=== PATIENT | male | born 1975 | race Caucasian/White ===

== ENCOUNTER 2018-12-16 07:48 | Day surgery (SDC) | payer OTHER ==
[~2018-12-16] VITALS: Ht 172.7 cm; Wt 66.0 kg
[2018-12-16] MEDS ORDERED: ACETAMINOPHEN 500 MG TABLET PO ONE (08:00)
[2018-12-16] MEDS ORDERED: OxyconTIN ER 20 MG TAB.ER PO ONE (08:00)
[2018-12-16] MEDS ORDERED: GABAPENTIN 300 MG CAPSULE PO ONE (08:00)
[2018-12-16] MEDS ORDERED: LACTATED RINGERS 1,000 ML IV SCH (08:25)
[2018-12-16 08:26] VITALS: BP 138/90
[2018-12-16] MEDS ORDERED: PLEASE ENTER ALLERGIES MC SCH (08:30)
[2018-12-16] MEDS ORDERED: PLEASE ENTER HEIGHT AND WEIGHT MC SCH (08:30)
[2018-12-16] MEDS ORDERED: AMOX1TAB64 PO (08:36)
[2018-12-16] MEDS ORDERED: SULF1TAB24 PO (08:36)
[2018-12-16] MEDS ORDERED: LIDOCAINE 1%, 20ML ONE (09:15)
[2018-12-16] MEDS ORDERED: BUPIVACAINE/PF 0.5% ONE (09:15)
[2018-12-16] MEDS ORDERED: LIDOCAINE 2%, 6 ML JEL.PF.APP MM ONE (09:27)
[2018-12-16] MEDS ORDERED: FENTANYL PF 100 MCG/2ML ONE (09:36)
[2018-12-16] MEDS ORDERED: MIDAZOLAM 1 MG/ML, 2ML ONE (09:36)
[2018-12-16] MEDS ORDERED: PROPOFOL 10 MG/ML, 50ML ONE (09:55)
[2018-12-16] MEDS ORDERED: PROPOFOL 10 MG/ML, 20ML ONE (09:55)
[2018-12-16] MEDS ORDERED: KETOROLAC 30 MG/1 ML ONE (09:55)
[2018-12-16] MEDS ORDERED: ONDANSETRON 2MG/ML, 2ML ONE (09:55)
[2018-12-16] MEDS ORDERED: DEXAMETHASONE 4 MG/ML, 5ML ONE (09:55)
[2018-12-16] MEDS ORDERED: DIAZEPAM 5 MG/ML, 2ML IVPush PRN (10:00)
[2018-12-16] MEDS ORDERED: CEFTRIAXONE PMX 2GM/50ML 50 ML IVPB ONE (10:00)
[2018-12-16] MEDS ORDERED: SCOPOLAMINE PATCH, 1.5MG PATCH.TD72 TD PRN (10:00)
[2018-12-16] MEDS ORDERED: DAPTOMYCIN 500 MG in SODIUM CHLORIDE 0.9% 100 ML IV ONE (10:00)
[2018-12-16] MEDS ORDERED: MIDAZOLAM 1 MG/ML, 2ML IV PRN (10:00)
[2018-12-16] MEDS ORDERED: hydrALAzine 20 MG/ML, 1ML IV PRN (10:00)
[2018-12-16] MEDS ORDERED: ONDANSETRON 2MG/ML, 2ML IV PRN (10:00)
[2018-12-16] MEDS ORDERED: OXYcodone 5 MG/5 ML ORAL.SOL UDC PO PRN (10:00)
[2018-12-16] MEDS ORDERED: FENTANYL PF 100 MCG/2ML IV PRN (10:00)
[2018-12-16] MEDS ORDERED: ALBUTEROL/IPRATROPIUM 2.5MG/0.5MG, 3 ML NPPB PRN (10:00)
[2018-12-16] MEDS ORDERED: MEPERIDINE/PF 25MG/0.5ML IVPush PRN (10:00)
[2018-12-16] MEDS ORDERED: PROMETHAZINE 25 MG/ML, 1ML IV PRN (10:00)
[2018-12-16] MEDS ORDERED: HYDROmorphone 2 MG/ML, 1ML IVPush PRN (10:00)
[2018-12-16] MEDS ORDERED: TOBRAMYCIN SULFATE 1.2 GM IMP ONE (10:06)
[2018-12-16 10:07] LABS: HCT (SEDRATE) 38.7 % (39.2-51.8)
[2018-12-16] MEDS ORDERED: VANCOMYCIN 1,000 MG ONE (10:07)
[2018-12-16 10:08] LABS: MEAN CORPUSCULAR HEMOGLOBIN 30.2 pg (27.5-34.5); MEAN CORPUSCULAR HGB CONC 33.8 g/dL (33.2-36.2); MEAN CORPUSCULAR VOLUME 89.1 fL (81-97); MEAN PLATELET VOLUME 7.4 fL (7.4-10.4); PLATELET COUNT 314 x10^3/uL (130-400); RED BLOOD COUNT 4.35 x10^6/uL (4.38-5.82); RED CELL DISTRIBUTION WIDTH 12.4 % (9.4-14.8)
[2018-12-16 10:16] LABS: ALANINE AMINOTRANSFERASE 23 U/L (12-78); ALBUMIN 3.5 g/dL (3.4-5.0); ANION GAP 8 mmol/L (5-15); CALCIUM 9.2 mg/dL (8.5-10.1); CHLORIDE 104 mmol/L (98-107); CREATININE 1.05 mg/dL (0.7-1.3)
[2018-12-16 10:22] LABS: ALKALINE PHOSPHATASE 79 U/L (45-117); BILIRUBIN,TOTAL 0.5 mg/dL (0.2-1.0); CREATINE KINASE, TOTAL 61 U/L (39-308); TOTAL PROTEIN 7.7 g/dL (6.4-8.2)
[2018-12-16 10:38] LABS: BASOPHILS # (AUTO) 0.02 x10^3/uL (0-0.1); BASOPHILS % (AUTO) 0 % (0-1); EOSINOPHILS # (AUTO) 0.05 x10^3/uL (0-0.4); EOSINOPHILS % (AUTO) 0 % (1-7); LYMPHOCYTES # (AUTO) 1.13 x10^3/uL (1-3.4); LYMPHOCYTES % (AUTO) 6 % (22-44); MD SCAN; MONOCYTES # (AUTO) 2.36 x10^3/uL (0.2-0.8); MONOCYTES % (AUTO) 13 % (2-9); NEUTROPHILS # (AUTO) 14.85 x10^3/uL (1.8-6.8); NEUTROPHILS % (AUTO) 81 % (42-75)
== END 2018-12-16 12:40 | disposition home or self-care (01) ==
LOC: OUT 07:48
PROVIDERS: ATTEND Orthopaedic Surgery
DX: L02.415 Cutaneous abscess of right lower limb (principal); M00.861 Arthritis due to other bacteria, right knee; L03.115 Cellulitis of right lower limb; J45.909 Unspecified asthma, uncomplicated; Z98.890 Other specified postprocedural states
CPT/HCPCS: 27310; 36415; 36573; 80053; 82550; 85025; 85651; 86140; 87070; 87075; 87077; 87147; 87176; 87186; 87205; 89051; C1751; J0696; J0878; J1100; J1885; J2250; J2405; J2704; J3010; J3260; J3370; J7120

== ENCOUNTER 2019-03-09 05:38 | Day surgery (SDC) | payer OTHER ==
[~2019-03-09] VITALS: Ht 172.7 cm; Wt 65.3 kg
[~2019-03-09 05:38] MED LIST: AMOX1TAB64 PO; SULF1TAB24 PO
[2019-03-09 06:16] VITALS: BP 140/91
[2019-03-09] MEDS ORDERED: LACTATED RINGERS 1,000 ML IV SCH (06:38)
[2019-03-09] MEDS ORDERED: FENTANYL PF 250 MCG/5ML ONE (06:47)
[2019-03-09] MEDS ORDERED: MIDAZOLAM 1 MG/ML, 2ML ONE (06:47)
[2019-03-09] MEDS ORDERED: PROPOFOL 50 ML ONE (06:47)
[2019-03-09] MEDS ORDERED: LIDOCAINE-MPF 2% ,5ML ONE (06:49)
[2019-03-09] MEDS ORDERED: ACETAMINOPHEN 500 MG TABLET PO ONE (07:00)
[2019-03-09] MEDS ORDERED: ONDANSETRON 2MG/ML, 2ML ONE (07:00)
[2019-03-09] MEDS ORDERED: DIAZEPAM 5 MG TABLET PO ONE (07:00)
[2019-03-09] MEDS ORDERED: OxyconTIN ER 20 MG TAB.ER PO ONE (07:00)
[2019-03-09] MEDS ORDERED: CEFAZOLIN 1,000 MG ONE (07:00)
[2019-03-09] MEDS ORDERED: DEXAMETHASONE 4 MG/ML, 1ML ONE (07:00)
[2019-03-09] MEDS ORDERED: GABAPENTIN 300 MG CAPSULE PO ONE (07:00)
[2019-03-09] MEDS ORDERED: ONDANSETRON 2MG/ML, 2ML IV PRN (08:00)
[2019-03-09] MEDS ORDERED: PROMETHAZINE 25 MG/ML, 1ML IV PRN (08:00)
[2019-03-09] MEDS ORDERED: MIDAZOLAM 1 MG/ML, 2ML IV PRN (08:00)
[2019-03-09] MEDS ORDERED: FENTANYL PF 100 MCG/2ML IV PRN (08:00)
[2019-03-09] MEDS ORDERED: METOPROLOL 1 MG/ML, 5ML IV PRN (08:00)
[2019-03-09] MEDS ORDERED: SCOPOLAMINE PATCH, 1.5MG PATCH.TD72 TD PRN (08:00)
[2019-03-09] MEDS ORDERED: ALBUTEROL/IPRATROPIUM 2.5MG/0.5MG, 3 ML NPPB PRN (08:00)
[2019-03-09] MEDS ORDERED: OXYcodone 5 MG/5 ML ORAL.SOL UDC PO PRN (08:00)
[2019-03-09] MEDS ORDERED: HYDROmorphone 2 MG/ML, 1ML IVPush PRN (08:00)
[2019-03-09] MEDS ORDERED: MEPERIDINE/PF 25MG/0.5ML IVPush PRN (08:00)
[2019-03-09] MEDS ORDERED: hydrALAzine 20 MG/ML, 1ML IV PRN (08:00)
== END 2019-03-09 10:35 | disposition home or self-care (01) ==
LOC: OUT 05:38
PROVIDERS: ATTEND Orthopaedic Surgery
DX: T84.196A Other mechanical complication of internal fixation device of bone of right lower leg, initial encounter (principal); S82.101K Unspecified fracture of upper end of right tibia, subsequent encounter for closed fracture with nonunion; Z88.0 Allergy status to penicillin; Y83.8 Other surgical procedures as the cause of abnormal reaction of the patient, or of later complication, without mention of misadventure at the time of the procedure; Y93.23 Activity, snow (alpine) (downhill) skiing, snowboarding, sledding, tobogganing and snow tubing
CPT/HCPCS: 11981; 20680; 27640; 71045; 73590; 87015; 87070; 87075; 87102; 87116; 87176; 87205; 87206; 88305; 88311; C1713; J0690; J1100; J2250; J2405; J2704; J3010; J7120; 76000

== ENCOUNTER 2019-03-09 08:00 | Outpatient (CLI) | payer OTHER | END 2019-03-09 23:59 | disposition home or self-care (01) | LOC: RAD 08:00 | PROVIDERS: ATTEND Orthopaedic Surgery | DX: Z45.2 Encounter for adjustment and management of vascular access device (principal); M86.8X6 Other osteomyelitis, lower leg; Z79.2 Long term (current) use of antibiotics | CPT/HCPCS: 36573; C1751; J3260; J3370 ==